=== PATIENT | male | born 1980 | race Asian ===

== ENCOUNTER 2017-03-20 08:08 | Emergency (ER) | payer OTHER ==
[~2017-03-20] VITALS: Ht 190.5 cm; Wt 104.3 kg
[2017-03-20 08:20] VITALS: TEMP 98.4
[2017-03-20 09:05] VITALS: BP 188/84
== END 2017-03-20 09:07 | disposition home or self-care (01) ==
LOC: ED 08:08
DX: L98.9 Disorder of the skin and subcutaneous tissue, unspecified (principal); L02.411 Cutaneous abscess of right axilla; M27.2 Inflammatory conditions of jaws
CPT/HCPCS: 99281

== ENCOUNTER 2022-04-01 14:16 | Emergency (ER) | payer OTHER ==
[~2022-04-01] VITALS: Ht 190.5 cm; Wt 99.8 kg
[2022-04-01 14:16] VITALS: BP 135/100; TEMP 98.9
[2022-04-01 14:42] LABS: PLATELET COUNT 294 K/uL (142-355)
[2022-04-01 14:46] LABS: POTASSIUM 3.5 mmol/L (3.6-5.2)
[2022-04-01 14:51] LABS: PARTIAL THROMBOPLASTIN TIME 26.5 SECONDS (24.5-33.6)
== END 2022-04-01 18:35 | disposition left against medical advice (07) ==
LOC: ED 14:16
PROVIDERS: Emergency Medicine
PROC: 0HQGXZZ Repair Left Hand Skin, External Approach (ICD-10-PCS; principal; 2022-04-01)
DX: S62.633B Displaced fracture of distal phalanx of left middle finger, initial encounter for open fracture (principal); S62.623B Displaced fracture of middle phalanx of left middle finger, initial encounter for open fracture; S62.665B Nondisplaced fracture of distal phalanx of left ring finger, initial encounter for open fracture; S66.123A Laceration of flexor muscle, fascia and tendon of left middle finger at wrist and hand level, initial encounter; S66.125A Laceration of flexor muscle, fascia and tendon of left ring finger at wrist and hand level, initial encounter; W29.3XXA Contact with powered garden and outdoor hand tools and machinery, initial encounter; Y92.89 Other specified places as the place of occurrence of the external cause; Z53.29 Procedure and treatment not carried out because of patient's decision for other reasons; Z20.822 Contact with and (suspected) exposure to COVID-19
CPT/HCPCS: 80048; 85027; 85610; 85730; 87635; 90471; 90715; 93005; 96365; 96375; 99284; J0690; J2270; J2405; J7040; U0003